=== PATIENT | male | born 1955 | race Caucasian/White ===

== ENCOUNTER 2022-04-30 09:16 | Inpatient (IN) | payer MEDICARE ==
[2022-04-30] MEDS ORDERED: Meropenem 1 GM in Sodium Chloride 0.9% 100 ML IV ONE (10:12)
[2022-04-30 11:02] LABS: ESTIMATED GFR 82 mL/min (>60)
[2022-04-30 11:15] LABS: CORONAVIRUS COVID-19 NAA NEGATIVE (NEGATIVE)
[2022-04-30] MEDS ORDERED: Sodium Chloride 0.9% 1,000 ML IV SCH (11:30)
[2022-04-30] MEDS ORDERED: Sodium Chloride 0.9% 10 ML Syringe FLUSH PRN (13:49)
[2022-04-30] MEDS ORDERED: Vancomycin 1 GM SDV IV SCH (13:49)
[2022-04-30] MEDS ORDERED: Ondansetron 4 MG/2 ML SDV IV PRN (13:49)
[2022-04-30] MEDS: Enoxaparin 40 MG/0.4 ML Syringe SUBCUT SCH (15:29)
[2022-04-30] MEDS: Acetaminophen 325 MG Tab PO PRN (16:44)
[2022-04-30] MEDS: Spironolactone 25 MG Tab PO SCH (17:16)
[2022-04-30] MEDS: oxyCODONE 5 MG Tab PO PRN (17:16)
[2022-04-30] MEDS: Furosemide 40 MG Tab PO SCH (17:17)
[2022-04-30] MEDS: Meropenem 1 GM in Sodium Chloride 0.9% 100 ML IV SCH (17:30)
[2022-05-01] MEDS: Acetaminophen 325 MG Tab PO PRN (03:20)
[2022-05-01] MEDS: oxyCODONE 5 MG Tab PO PRN ×2 (03:20→20:11)
[2022-05-01] MEDS: Meropenem 1 GM in Sodium Chloride 0.9% 100 ML IV SCH ×3 (03:21→18:17)
[2022-05-01] MEDS: Spironolactone 25 MG Tab PO SCH (08:28)
[2022-05-01] MEDS: Furosemide 40 MG Tab PO SCH (08:29)
[2022-05-01] MEDS: Vancomycin 1.2 GM in Sodium Chloride 0.9% 250 ML IV SCH (08:31)
[2022-05-01] MEDS ORDERED: Non-Formulary Medication 1 Each (Spironolactone [Aldactone] 50 MG Tablet) PO SCH (09:00)
[2022-05-01] MEDS ORDERED: Spironolactone 25 MG Tab PO SCH (09:00)
[2022-05-01] MEDS ORDERED: Furosemide 40 MG Tab PO SCH (09:00)
[2022-05-01] MEDS: Enoxaparin 40 MG/0.4 ML Syringe SUBCUT SCH (15:57)
[2022-05-02] MEDS: Meropenem 1 GM in Sodium Chloride 0.9% 100 ML IV SCH ×3 (02:47→18:03)
[2022-05-02] MEDS: Vancomycin 1.2 GM in Sodium Chloride 0.9% 250 ML IV SCH ×2 (03:29→20:09)
[2022-05-02] MEDS: oxyCODONE 5 MG Tab PO PRN (03:35)
[2022-05-02] MEDS: Spironolactone 25 MG Tab PO SCH (09:45)
[2022-05-02] MEDS: Furosemide 40 MG Tab PO SCH (09:45)
[2022-05-02] MEDS: Enoxaparin 40 MG/0.4 ML Syringe SUBCUT SCH (16:04)
[2022-05-03] MEDS: Meropenem 1 GM in Sodium Chloride 0.9% 100 ML IV SCH (02:35)
[2022-05-03] MEDS: oxyCODONE 5 MG Tab PO PRN ×4 (02:51→20:43)
[2022-05-03] MEDS: Spironolactone 25 MG Tab PO SCH (08:34)
[2022-05-03] MEDS: Furosemide 40 MG Tab PO SCH (08:34)
[2022-05-03] MEDS: Silver Sulfadiazine 1% Crm 50 GM Tube TOP SCH (10:56)
[2022-05-03] MEDS: Clindamycin HCl 150 MG Cap PO SCH ×2 (10:56→18:16)
[2022-05-03] MEDS: Enoxaparin 40 MG/0.4 ML Syringe SUBCUT SCH (15:56)
[2022-05-03] MEDS: Lactobacillus Rhamnosus GG (Probiotic) Cap PO SCH (20:43)
[2022-05-04] MEDS: Clindamycin HCl 150 MG Cap PO SCH ×2 (02:32→11:04)
[2022-05-04] MEDS: Lactobacillus Rhamnosus GG (Probiotic) Cap PO SCH (08:04)
[2022-05-04] MEDS: Spironolactone 25 MG Tab PO SCH (08:04)
[2022-05-04] MEDS: Furosemide 40 MG Tab PO SCH (08:04)
[2022-05-04] MEDS: Silver Sulfadiazine 1% Crm 50 GM Tube TOP SCH (08:04)
[2022-05-04] MEDS: oxyCODONE 5 MG Tab PO PRN (11:12)
[2022-05-04] MEDS: Acetaminophen 325 MG Tab PO PRN (14:14)
== END 2022-05-04 14:30 | disposition home health service (06) | DRG 300 ==
LOC: JP.ED 09:16 → JP.MS 12:39
PROVIDERS: ADMIT Hospitalist; ATTEND Hospitalist
DX: I87.2 Venous insufficiency (chronic) (peripheral) (principal); L03.115 Cellulitis of right lower limb; J44.9 Chronic obstructive pulmonary disease, unspecified; H54.7 Unspecified visual loss; I50.9 Heart failure, unspecified; I11.0 Hypertensive heart disease with heart failure; Z87.891 Personal history of nicotine dependence; Z86.73 Personal history of transient ischemic attack (TIA), and cerebral infarction without residual deficits; Z95.5 Presence of coronary angioplasty implant and graft
CPT/HCPCS: 0241U; 36415; 71045; 80048; 80053; 80202; 83735; 85025; 86140; 96365; 97110-GP; 97162-GP; 97165-GO; 97530-GP; 97535-GP; 99285-25; A9270-GY; J1650; J2185; J3370; J3490; J7030; J7050